=== PATIENT | male | born 1990 | race Caucasian/White ===

== ENCOUNTER 2023-02-23 09:56 | Emergency (ER) | payer OTHER ==
[2023-02-23] MEDS ORDERED: HYDROcodone/Acetaminophen 10/325 mg Tablet ONE (10:49)
[2023-02-23] MEDS ORDERED: Ketorolac Tromethamine 60 MG/2 ML VIAL ONE (10:50)
[2023-02-23] MEDS ORDERED: Dexamethasone 4 mg/ml Vial ONE (10:50)
== END 2023-02-23 12:10 | disposition home or self-care (01) ==
LOC: NAV ERS 09:56
DX: S39.012A Strain of muscle, fascia and tendon of lower back, initial encounter (principal); F17.290 Nicotine dependence, other tobacco product, uncomplicated; X50.0XXA Overexertion from strenuous movement or load, initial encounter; Y93.F2 Activity, caregiving, lifting
CPT/HCPCS: 72100; 96372; J1100; J1885

== ENCOUNTER 2023-03-07 09:58 | Emergency (ER) | payer SELFPAY ==
[2023-03-07 10:33] LABS: #Eosinphils 0.3 thou/uL (0.0-0.7); #Lymphocytes 1.3 thou/uL (1.20-3.40); #Monocytes 0.4 thou/uL (0.11-0.59); #Neutrophils 3.1 thou/uL (1.40-6.50); %Basophils 0.8 % (0.0-1.0); %Eosinophils 5.7 % (0.0-10.0); %Lymphocytes 25.2 % (21.0-51.0); %Monocytes 8.1 % (0.0-10.0); %Neutrophils 60.2 % (42.0-75.0); Hematocrit 44.4 % (42.0-52.0); Hemoglobin 14.6 g/dL (14.0-18.0); Mean Corpuscular HGB CONC 32.9 g/dL (32.0-36.0); Mean Corpuscular Hemoglobin 27.6 pg (27.0-31.0); Mean Corpuscular Volume 83.9 fl (78.0-98.0); Mean Platelet Volume 8.8 fL (7.4-10.4); Platelet Count 149 10x3/uL (130-400); RBC Distribution Width 11.6 % (11.5-14.5); Red Blood Cell (RBC) Count 5.29 mill/uL (4.70-6.10); White Blood Cell (WBC) Count 5.1 10x3/uL (4.8-10.8)
[2023-03-07 10:51] LABS: ALT (SGPT) 36 U/L (8-55); AST (SGOT) 25 U/L (5-34); Albumin 4.2 g/dL (3.5-5.0); Alkaline Phosphatase 86 U/L (40-110); Anion Gap 12 mmol/L (10-20); BUN (Urea Nitrogen) 23 mg/dL (8.9-20.6); Bilirubin, Total 0.4 mg/dL (0.2-1.2); Calc. Creatinine Clearance 0 mL/min (70-130); Calcium 9.3 mg/dL (7.8-10.44); Carbon Dioxide 24 mmol/L (22-29); Chloride 108 mmol/L (98-107); Estimated GFR 117; Globulin 2.9 g/dL (2.4-3.5); Glucose 93 mg/dL (70-105); Potassium 4.3 mmol/L (3.5-5.1); Protein, Total 7.1 g/dL (6.0-8.3); Sodium 140 mmol/L (136-145)
[2023-03-07 10:52] LABS: Troponin I Less than 0.010 ng/mL (< 0.028)
== END 2023-03-07 11:49 | disposition home or self-care (01) ==
LOC: NAV ERS 09:58
DX: R00.2 Palpitations (principal); F17.290 Nicotine dependence, other tobacco product, uncomplicated
CPT/HCPCS: 36415; 71046; 80053; 84443; 84484; 85025; 85379; 93005

== ENCOUNTER 2023-04-10 14:21 | Emergency (ER) | payer SELFPAY ==
[2023-04-10] MEDS ORDERED: Sodium Chloride 0.9% 1,000 ML ONE (16:05)
[2023-04-10] MEDS ORDERED: diphenhydrAMINE 50 MG/ML VIAL ONE (16:18)
[2023-04-10] MEDS ORDERED: Prochlorperazine 10 MG/2 ML VIAL ONE (16:18)
[2023-04-10] MEDS ORDERED: Ketorolac Tromethamine 30 MG/ML VIAL ONE (16:18)
== END 2023-04-10 18:21 | disposition home or self-care (01) ==
LOC: NAV ERS 14:21
DX: R51.9 Headache, unspecified (principal); F17.290 Nicotine dependence, other tobacco product, uncomplicated
CPT/HCPCS: 70450; 96374; 96375; J0780; J1200; J1885; J7050